=== PATIENT | female | born 1955 | race Caucasian/White ===

== ENCOUNTER 2021-12-28 18:55 | Inpatient (IN) ==
[2021-12-29] MEDS ORDERED: Naloxone 0.4 MG/ML INJ IVP PRN (05:02)
[2021-12-29] MEDS ORDERED: Ondansetron 4 MG/2 ML VIAL IVP PRN (05:02)
[2021-12-29 05:45] LABS: Basophils # 0.1 K/mcL (0.0-0.2); Basophils % 0.3 %; Eosinophils # 0.1 K/mcL (0.0-0.6); Eosinophils % 0.7 %; Hematocrit 40.8 % (35.3-44.9); Hemoglobin 12.8 g/dL (11.5-15.4); Immature Granulocytes % 0.6 % (0-4); Lymphocytes # 1.7 K/mcL (0.6-4.6); Lymphocytes % 8.6 %; Mean Corpuscular HGB Conc 31.4 g/dL (31.6-35.5); Mean Corpuscular Hemoglobin 26.8 pg (28.0-33.3); Mean Corpuscular Volume 85.5 fL (83.0-100.0); Mean Platelet Volume 10.5 fL (9.4-12.4); Monocytes # 1.2 K/mcL (0.0-1.3); Monocytes % 6.1 %; Neutrophils # 16.4 K/mcL (1.6-8.9); Platelet Count 176 K/mcL (140-400); Red Blood Count 4.77 M/mcL (3.82-4.97); Segmented Neutrophils % 83.7 %; White Blood Count 19.6 K/mcL (4.3-11.1)
[2021-12-29] MEDS ORDERED: Dextrose Gel 15 GM/37.5 ML TUBE PO PRN ×2 (05:56)
[2021-12-29] MEDS ORDERED: *HR* Dextrose 50 % in Water (Syg) 50 ML SYRINGE IVP PRN (05:56)
[2021-12-29] MEDS ORDERED: D5% in Water 1,000 ML IVC PRN (05:56)
[2021-12-29 06:03] LABS: Magnesium 1.8 mg/dL (1.6-2.6); Phosphorous 2.9 mg/dL (2.7-4.5)
[2021-12-29] MEDS: *HR* Heparin 5,000 UNIT/ML VIAL SQ SCH ×3 (06:03→20:14)
[2021-12-29 06:04] LABS: BUN/Creatinine Ratio 16 (6-26); Blood Urea Nitrogen 13 mg/dL (8-23); Calcium 8.1 mg/dL (8.6-10.3); Carbon Dioxide 25 mEq/L (23-29); Chloride 104 mEq/L (98-107); Glucose 102 mg/dL (70-105); Osmolality,Calculated 280 (280-300); Potassium 3.6 mEq/L (3.5-5.1); Sodium 135 mEq/L (136-145); eGFR For African Americans > 60 (> 60); eGFR For Non-African Americans > 60 (> 60)
[2021-12-29] MEDS ORDERED: Vancomycin (wt based) 1,000 MG VIAL IVPB SCH (07:00)
[2021-12-29] MEDS: Ipratropium/Albuterol Neb 3 ML IH SCH ×5 (07:37→23:04)
[2021-12-29] MEDS: Insulin LISPRO 300 UNITS/3 ML VIAL SUBQ SCH ×3 (07:56→17:48)
[2021-12-29] MEDS: Piperacillin/Tazobactam 3.375 GM in 0.9 % Sodium Chloride Mini Bag 100 ML IVPB SCH ×3 (07:58→22:59)
[2021-12-29] MEDS: Acetaminophen 325 MG TABLET PO PRN ×2 (08:18→14:31)
[2021-12-29] MEDS ORDERED: Buprenorphine Hcl/Naloxone Hcl 8-2MG SL SCH (09:00)
[2021-12-29] MEDS ORDERED: Torsemide 20 MG TABLET PO PRN (09:40)
[2021-12-29] MEDS ORDERED: *HR* Buprenorphine HCl 8 MG TAB.SUBL SL SCH (15:15)
[2021-12-29] MEDS: Gabapentin 100 MG CAPSULE PO SCH ×2 (15:46→20:14)
[2021-12-29] MEDS: Vancomycin 1,500 MG/265 ML IV.SOLN IVPB SCH (20:13)
[2021-12-29] MEDS: PARoxetine 20 MG TABLET PO SCH (20:14)
[2021-12-30] MEDS: Ipratropium/Albuterol Neb 3 ML IH SCH ×6 (03:39→23:05)
[2021-12-30 04:04] LABS: Basophils % 0.2 %; Eosinophils # 0.5 K/mcL (0.0-0.6); Eosinophils % 2.8 %; Hematocrit 39.7 % (35.3-44.9); Hemoglobin 12.5 g/dL (11.5-15.4); Immature Granulocytes % 0.6 % (0-4); Lymphocytes # 2.1 K/mcL (0.6-4.6); Lymphocytes % 12.6 %; Mean Corpuscular HGB Conc 31.5 g/dL (31.6-35.5); Mean Corpuscular Hemoglobin 26.9 pg (28.0-33.3); Mean Corpuscular Volume 85.4 fL (83.0-100.0); Mean Platelet Volume 10.7 fL (9.4-12.4); Monocytes # 1.3 K/mcL (0.0-1.3); Monocytes % 7.8 %; Neutrophils # 12.4 K/mcL (1.6-8.9); Platelet Count 182 K/mcL (140-400); Red Blood Count 4.65 M/mcL (3.82-4.97); Red Cell Distribution Width 18.2 % (11.5-14.5); White Blood Count 16.3 K/mcL (4.3-11.1)
[2021-12-30 04:25] LABS: BUN/Creatinine Ratio 18 (6-26); Blood Urea Nitrogen 12 mg/dL (8-23); C-Reactive Protein > 300 mg/L (Less than 10); Calcium 8.5 mg/dL (8.6-10.3); Carbon Dioxide 27 mEq/L (23-29); Chloride 103 mEq/L (98-107); Estimated Average Glucose 126 mg/dl; Glucose 89 mg/dL (70-105); Osmolality,Calculated 281 (280-300); Potassium 3.7 mEq/L (3.5-5.1); Sodium 136 mEq/L (136-145); eGFR For African Americans > 60 (> 60); eGFR For Non-African Americans > 60 (> 60)
[2021-12-30] MEDS: *HR* Heparin 5,000 UNIT/ML VIAL SQ SCH ×3 (04:37→23:22)
[2021-12-30] MEDS: Insulin LISPRO 300 UNITS/3 ML VIAL SUBQ SCH ×3 (08:21→16:50)
[2021-12-30] MEDS: Piperacillin/Tazobactam 3.375 GM in 0.9 % Sodium Chloride Mini Bag 100 ML IVPB SCH ×2 (08:32→15:28)
[2021-12-30] MEDS: Gabapentin 100 MG CAPSULE PO SCH ×3 (08:32→20:35)
[2021-12-30] MEDS: *HR* Buprenorphine HCl 8 MG TAB.SUBL SL SCH ×2 (09:16→20:34)
[2021-12-30] MEDS ORDERED: Furosemide 20 MG/2 ML VIAL IVP ONE (11:22)
[2021-12-30] MEDS: Acetaminophen 325 MG TABLET PO PRN (12:31)
[2021-12-30] MEDS: Cyanocobalamin (B-12) 1,000 MCG/ML VIAL SQ SCH (12:32)
[2021-12-30] MEDS: PARoxetine 20 MG TABLET PO SCH (20:34)
[2021-12-30] MEDS: Melatonin 3 MG TABLET PO PRN (20:35)
[2021-12-30] MEDS: Vancomycin 1,500 MG/265 ML IV.SOLN IVPB SCH (20:46)
[2021-12-30] MEDS ORDERED: Vancomycin 2,000 MG/520 ML IV.SOLN IVPB SCH (21:00)
[2021-12-31] MEDS: Acetaminophen 325 MG TABLET PO PRN ×2 (00:27→15:08)
[2021-12-31] MEDS: Piperacillin/Tazobactam 3.375 GM in 0.9 % Sodium Chloride Mini Bag 100 ML IVPB SCH ×4 (00:28→23:34)
[2021-12-31] MEDS: Ipratropium/Albuterol Neb 3 ML IH SCH ×6 (03:57→23:25)
[2021-12-31] MEDS: *HR* Heparin 5,000 UNIT/ML VIAL SQ SCH ×3 (05:06→20:31)
[2021-12-31 05:49] LABS: Basophils % 0.3 %; Eosinophils # 0.5 K/mcL (0.0-0.6); Eosinophils % 4.2 %; Hematocrit 38.6 % (35.3-44.9); Hemoglobin 12.1 g/dL (11.5-15.4); Immature Granulocytes % 0.5 % (0-4); Lymphocytes # 1.7 K/mcL (0.6-4.6); Lymphocytes % 13.8 %; Mean Corpuscular HGB Conc 31.3 g/dL (31.6-35.5); Mean Corpuscular Hemoglobin 26.7 pg (28.0-33.3); Mean Corpuscular Volume 85.2 fL (83.0-100.0); Mean Platelet Volume 10.9 fL (9.4-12.4); Monocytes # 1.3 K/mcL (0.0-1.3); Monocytes % 10.5 %; Neutrophils # 8.9 K/mcL (1.6-8.9); Platelet Count 207 K/mcL (140-400); Red Blood Count 4.53 M/mcL (3.82-4.97); Red Cell Distribution Width 18.1 % (11.5-14.5); Segmented Neutrophils % 70.7 %; White Blood Count 12.6 K/mcL (4.3-11.1)
[2021-12-31 06:09] LABS: BUN/Creatinine Ratio 19 (6-26); Blood Urea Nitrogen 13 mg/dL (8-23); Calcium 8.3 mg/dL (8.6-10.3); Carbon Dioxide 29 mEq/L (23-29); Chloride 102 mEq/L (98-107); Glucose 92 mg/dL (70-105); Osmolality,Calculated 282 (280-300); Potassium 3.4 mEq/L (3.5-5.1); Sodium 136 mEq/L (136-145); eGFR For African Americans > 60 (> 60); eGFR For Non-African Americans > 60 (> 60)
[2021-12-31 06:10] LABS: Phosphorous 3.2 mg/dL (2.7-4.5)
[2021-12-31] MEDS: Insulin LISPRO 300 UNITS/3 ML VIAL SUBQ SCH ×3 (07:32→17:17)
[2021-12-31] MEDS: Cyanocobalamin (B-12) 1,000 MCG/ML VIAL SQ SCH (08:21)
[2021-12-31] MEDS: *HR* Buprenorphine HCl 8 MG TAB.SUBL SL SCH ×2 (08:22→20:33)
[2021-12-31] MEDS: Gabapentin 100 MG CAPSULE PO SCH ×3 (08:22→20:32)
[2021-12-31] MEDS ORDERED: *HR* Buprenorphine HCl 8 MG TAB.SUBL SL SCH (09:00)
[2021-12-31] MEDS ORDERED: Furosemide 40 MG/4 ML VIAL IVP ONE (09:05)
[2021-12-31] MEDS ORDERED: Furosemide 40 MG/4 ML VIAL ONE (09:06)
[2021-12-31 09:20] LABS: ABG Base Excess 3 mEq/L (-2 to 3); ABG HCO3 29 mEq/L (21-27); ABG Oxygen Saturation 93 % (95-98); ABG PCO2 48 mmHg (35-45); ABG PH 7.39 pH Units (7.32-7.45); ABG PO2 67 mmHg (85-104); ABG TCO2 30 mEq/L (20-26)
[2021-12-31 13:17] LABS: Adenovirus Not Detected (Not Detect); Bordetella Pertussis Not Detected (Not Detect); Chlamydophila pneumoniae Not Detected (Not Detect); Coronavirus 229E Not Detected (Not Detect); Coronavirus HKU1 Not Detected (Not Detect); Coronavirus NL63 Not Detected (Not Detect); Coronavirus OC43 Not Detected (Not Detect); Human Metapneumovirus Not Detected (Not Detect); Human Rhinovirus/Enterovirus Not Detected (Not Detect); Influenza A Subtype 2009 H1 Not Detected (Not Detect); Influenza B Not Detected (Not Detect); Mycoplasma pneumoniae Not Detected (Not Detect); Parainfluenza Virus 1 Not Detected (Not Detect); Parainfluenza Virus 2 Not Detected (Not Detect); Parainfluenza Virus 3 Not Detected (Not Detect); Parainfluenza Virus 4 Not Detected (Not Detect); Respiratory Syncytial Virus Not Detected (Not Detect); SARS-CoV-2 Not Detected (Not Detect)
[2021-12-31] MEDS: PARoxetine 20 MG TABLET PO SCH (20:32)
[2021-12-31] MEDS: Vancomycin 2,000 MG/520 ML IV.SOLN IVPB SCH (20:32)
[2022-01-01] MEDS: Ipratropium/Albuterol Neb 3 ML IH SCH ×6 (03:50→22:46)
[2022-01-01 04:26] LABS: Basophils % 0.3 %; Eosinophils # 0.7 K/mcL (0.0-0.6); Eosinophils % 5.6 %; Hematocrit 39.9 % (35.3-44.9); Hemoglobin 12.5 g/dL (11.5-15.4); Immature Granulocytes % 0.7 % (0-4); Lymphocytes # 1.3 K/mcL (0.6-4.6); Lymphocytes % 10.8 %; Mean Corpuscular HGB Conc 31.3 g/dL (31.6-35.5); Mean Corpuscular Hemoglobin 26.9 pg (28.0-33.3); Mean Corpuscular Volume 85.8 fL (83.0-100.0); Monocytes # 1.9 K/mcL (0.0-1.3); Monocytes % 16.5 %; Neutrophils # 7.7 K/mcL (1.6-8.9); Platelet Count 216 K/mcL (140-400); Red Blood Count 4.65 M/mcL (3.82-4.97); Red Cell Distribution Width 18.2 % (11.5-14.5); Segmented Neutrophils % 66.1 %; White Blood Count 11.6 K/mcL (4.3-11.1)
[2022-01-01 04:39] LABS: BUN/Creatinine Ratio 18 (6-26); Blood Urea Nitrogen 15 mg/dL (8-23); Calcium 8.5 mg/dL (8.6-10.3); Carbon Dioxide 32 mEq/L (23-29); Chloride 101 mEq/L (98-107); Glucose 99 mg/dL (70-105); Osmolality,Calculated 289 (280-300); Phosphorous 3.5 mg/dL (2.7-4.5); Potassium 3.3 mEq/L (3.5-5.1); Sodium 139 mEq/L (136-145); eGFR For African Americans > 60 (> 60); eGFR For Non-African Americans > 60 (> 60)
[2022-01-01] MEDS: Acetaminophen 325 MG TABLET PO PRN (04:57)
[2022-01-01] MEDS: *HR* Heparin 5,000 UNIT/ML VIAL SQ SCH ×3 (04:57→20:17)
[2022-01-01] MEDS: Insulin LISPRO 300 UNITS/3 ML VIAL SUBQ SCH ×3 (07:19→16:04)
[2022-01-01] MEDS ORDERED: *HR* Succinylcholine 200 MG/10 ML VIAL IVP ONE (07:50)
[2022-01-01] MEDS ORDERED: *HR* FentaNYL (PF) 100 MCG/2 ML VIAL ONE (07:50)
[2022-01-01] MEDS ORDERED: Lidocaine -MPF 2% 5 ML VIAL ONE (07:50)
[2022-01-01] MEDS ORDERED: Ondansetron 4 MG/2 ML VIAL ONE (07:50)
[2022-01-01] MEDS: Piperacillin/Tazobactam 3.375 GM in 0.9 % Sodium Chloride Mini Bag 100 ML IVPB SCH ×2 (10:20→16:04)
[2022-01-01] MEDS: *HR* Buprenorphine HCl 8 MG TAB.SUBL SL SCH ×2 (10:31→20:17)
[2022-01-01] MEDS: Gabapentin 100 MG CAPSULE PO SCH ×3 (10:31→20:17)
[2022-01-01] MEDS: PARoxetine 20 MG TABLET PO SCH (20:17)
[2022-01-01] MEDS: Vancomycin 2,000 MG/520 ML IV.SOLN IVPB SCH (20:18)
[2022-01-02] MEDS: Piperacillin/Tazobactam 3.375 GM in 0.9 % Sodium Chloride Mini Bag 100 ML IVPB SCH ×4 (00:34→23:58)
[2022-01-02] MEDS: Ipratropium/Albuterol Neb 3 ML IH SCH ×6 (03:03→23:54)
[2022-01-02] MEDS: *HR* Heparin 5,000 UNIT/ML VIAL SQ SCH ×3 (05:37→22:26)
[2022-01-02] MEDS: Gabapentin 100 MG CAPSULE PO SCH ×3 (08:28→20:14)
[2022-01-02] MEDS: *HR* Buprenorphine HCl 8 MG TAB.SUBL SL SCH ×2 (08:28→20:14)
[2022-01-02] MEDS: Ergocalciferol (VIT D2) 50,000 UNIT (1.25MG) CAP PO SCH (08:28)
[2022-01-02] MEDS: Insulin LISPRO 300 UNITS/3 ML VIAL SUBQ SCH ×3 (08:28→16:20)
[2022-01-02 08:33] LABS: Basophils % 0.1 %; Hematocrit 37.9 % (35.3-44.9); Hemoglobin 11.9 g/dL (11.5-15.4); Immature Granulocytes % 0.6 % (0-4); Lymphocytes # 0.6 K/mcL (0.6-4.6); Lymphocytes % 6.4 %; Mean Corpuscular HGB Conc 31.4 g/dL (31.6-35.5); Mean Corpuscular Hemoglobin 26.9 pg (28.0-33.3); Mean Corpuscular Volume 85.7 fL (83.0-100.0); Mean Platelet Volume 10.4 fL (9.4-12.4); Monocytes # 1.1 K/mcL (0.0-1.3); Monocytes % 11.3 %; Neutrophils # 7.7 K/mcL (1.6-8.9); Platelet Count 274 K/mcL (140-400); Red Blood Count 4.42 M/mcL (3.82-4.97); Segmented Neutrophils % 81.6 %; White Blood Count 9.5 K/mcL (4.3-11.1)
[2022-01-02 08:53] LABS: Calcium 8.8 mg/dL (8.6-10.3); Magnesium 2.4 mg/dL (1.6-2.6); Phosphorous 3.2 mg/dL (2.7-4.5); Potassium 3.5 mEq/L (3.5-5.1)
[2022-01-02 10:27] LABS: Source of Body Fluid RLL BAL
[2022-01-02 13:19] LABS: Appearance of Body Fluid Slightly Hazy (Clear); Volume of Body Fluid 13 mL
[2022-01-02] MEDS: PARoxetine 20 MG TABLET PO SCH (20:13)
[2022-01-02] MEDS ORDERED: Vancomycin 1,750 MG/517.5 ML IV.SOLN IVPB SCH (21:00)
[2022-01-03] MEDS: Ipratropium/Albuterol Neb 3 ML IH SCH ×6 (04:13→23:55)
[2022-01-03] MEDS: *HR* Heparin 5,000 UNIT/ML VIAL SQ SCH ×3 (05:18→22:41)
[2022-01-03] MEDS: Cyanocobalamin (B-12) 1,000 MCG/ML VIAL SQ SCH (07:25)
[2022-01-03] MEDS: Gabapentin 100 MG CAPSULE PO SCH ×3 (08:27→19:36)
[2022-01-03] MEDS: *HR* Buprenorphine HCl 8 MG TAB.SUBL SL SCH ×2 (08:27→19:36)
[2022-01-03] MEDS: Piperacillin/Tazobactam 3.375 GM in 0.9 % Sodium Chloride Mini Bag 100 ML IVPB SCH ×2 (08:27→15:08)
[2022-01-03] MEDS: Insulin LISPRO 300 UNITS/3 ML VIAL SUBQ SCH ×3 (08:31→17:00)
[2022-01-03] MEDS: Albumin 25% 25gram/100mL 25 GM/100 ML IV.SOLN IVPB SCH (15:08)
[2022-01-03] MEDS: PARoxetine 20 MG TABLET PO SCH (19:35)
[2022-01-03] MEDS: Acetaminophen 325 MG TABLET PO PRN (22:50)
[2022-01-04] MEDS: Piperacillin/Tazobactam 3.375 GM in 0.9 % Sodium Chloride Mini Bag 100 ML IVPB SCH ×2 (00:01→08:48)
[2022-01-04] MEDS: Albumin 25% 25gram/100mL 25 GM/100 ML IV.SOLN IVPB SCH ×2 (00:01→08:48)
[2022-01-04 03:06] LABS: Basophils % 0.5 %; Eosinophils # 0.5 K/mcL (0.0-0.6); Eosinophils % 6.1 %; Hematocrit 34.9 % (35.3-44.9); Hemoglobin 10.7 g/dL (11.5-15.4); Immature Granulocytes % 0.7 % (0-4); Lymphocytes # 1.7 K/mcL (0.6-4.6); Lymphocytes % 19.2 %; Mean Corpuscular HGB Conc 30.7 g/dL (31.6-35.5); Mean Corpuscular Hemoglobin 26.7 pg (28.0-33.3); Mean Platelet Volume 10.6 fL (9.4-12.4); Monocytes # 0.9 K/mcL (0.0-1.3); Monocytes % 9.9 %; Neutrophils # 5.6 K/mcL (1.6-8.9); Platelet Count 293 K/mcL (140-400); Red Blood Count 4.01 M/mcL (3.82-4.97); Red Cell Distribution Width 18.3 % (11.5-14.5); Segmented Neutrophils % 63.6 %; White Blood Count 8.9 K/mcL (4.3-11.1)
[2022-01-04 03:26] LABS: Calcium 8.9 mg/dL (8.6-10.3); Magnesium 2.3 mg/dL (1.6-2.6); Phosphorous 3.6 mg/dL (2.7-4.5)
[2022-01-04] MEDS: Ipratropium/Albuterol Neb 3 ML IH SCH ×6 (03:58→23:29)
[2022-01-04] MEDS: *HR* Heparin 5,000 UNIT/ML VIAL SQ SCH ×3 (05:48→21:14)
[2022-01-04] MEDS: Gabapentin 100 MG CAPSULE PO SCH ×3 (08:46→21:13)
[2022-01-04] MEDS: *HR* Buprenorphine HCl 8 MG TAB.SUBL SL SCH ×2 (08:46→21:14)
[2022-01-04] MEDS: Insulin LISPRO 300 UNITS/3 ML VIAL SUBQ SCH ×3 (09:23→15:54)
[2022-01-04] MEDS: Acetaminophen 325 MG TABLET PO PRN (17:13)
[2022-01-04] MEDS: Cefepime HCl 2,000 MG in 0.9 % Sodium Chloride Mini Bag 100 ML IVPB SCH (17:13)
[2022-01-04 19:20] LABS: Influenza A PCR Body Fluid INVALID; Influenza B PCR Body Fluid INVALID; RVP Body Fluid Source BAL
[2022-01-04] MEDS: PARoxetine 20 MG TABLET PO SCH (21:13)
[2022-01-05] MEDS: Ipratropium/Albuterol Neb 3 ML IH SCH ×6 (03:45→22:59)
[2022-01-05] MEDS: *HR* Heparin 5,000 UNIT/ML VIAL SQ SCH ×3 (06:17→21:27)
[2022-01-05] MEDS: Cefepime HCl 2,000 MG in 0.9 % Sodium Chloride Mini Bag 100 ML IVPB SCH ×2 (06:17→18:42)
[2022-01-05 06:58] LABS: White Blood Count 9.6 K/mcL (4.3-11.1)
[2022-01-05 06:59] LABS: Basophils % 0.4 %; Eosinophils # 0.9 K/mcL (0.0-0.6); Eosinophils % 9.6 %; Hematocrit 35.4 % (35.3-44.9); Immature Granulocytes % 0.5 % (0-4); Lymphocytes # 1.8 K/mcL (0.6-4.6); Lymphocytes % 18.8 %; Mean Corpuscular HGB Conc 31.1 g/dL (31.6-35.5); Mean Corpuscular Hemoglobin 26.8 pg (28.0-33.3); Mean Corpuscular Volume 86.1 fL (83.0-100.0); Mean Platelet Volume 10.7 fL (9.4-12.4); Monocytes # 0.7 K/mcL (0.0-1.3); Monocytes % 7.5 %; Neutrophils # 6.1 K/mcL (1.6-8.9); Platelet Count 330 K/mcL (140-400); Red Blood Count 4.11 M/mcL (3.82-4.97); Segmented Neutrophils % 63.2 %
[2022-01-05 07:21] LABS: Calcium 8.9 mg/dL (8.6-10.3); Magnesium 2.4 mg/dL (1.6-2.6); Phosphorous 4.1 mg/dL (2.7-4.5)
[2022-01-05 07:25] LABS: RSV PCR Body Fluid INVALID
[2022-01-05] MEDS: Gabapentin 100 MG CAPSULE PO SCH ×3 (10:46→21:27)
[2022-01-05] MEDS: hydrOXYzine pamoate 25 MG CAPSULE PO PRN (10:46)
[2022-01-05] MEDS: *HR* Buprenorphine HCl 8 MG TAB.SUBL SL SCH ×2 (10:47→21:24)
[2022-01-05] MEDS: Insulin LISPRO 300 UNITS/3 ML VIAL SUBQ SCH ×2 (14:36→18:36)
[2022-01-05] MEDS: Acetaminophen 325 MG TABLET PO PRN (18:50)
[2022-01-05] MEDS: PARoxetine 20 MG TABLET PO SCH (21:26)
[2022-01-05] MEDS ORDERED: Vancomycin 500 MG in 0.9 % Sodium Chloride Mini Bag 100 ML IVPB ONE (23:00)
[2022-01-06 02:16] LABS: Basophils # 0.1 K/mcL (0.0-0.2); Basophils % 0.5 %; Eosinophils # 0.9 K/mcL (0.0-0.6); Eosinophils % 9.7 %; Hematocrit 35.1 % (35.3-44.9); Hemoglobin 10.9 g/dL (11.5-15.4); Immature Granulocytes % 0.7 % (0-4); Lymphocytes # 1.6 K/mcL (0.6-4.6); Lymphocytes % 16.6 %; Mean Corpuscular HGB Conc 31.1 g/dL (31.6-35.5); Mean Corpuscular Hemoglobin 26.8 pg (28.0-33.3); Mean Corpuscular Volume 86.5 fL (83.0-100.0); Mean Platelet Volume 10.5 fL (9.4-12.4); Monocytes # 0.7 K/mcL (0.0-1.3); Monocytes % 7.3 %; Neutrophils # 6.3 K/mcL (1.6-8.9); Platelet Count 308 K/mcL (140-400); Red Blood Count 4.06 M/mcL (3.82-4.97); Segmented Neutrophils % 65.2 %; White Blood Count 9.7 K/mcL (4.3-11.1)
[2022-01-06 02:38] LABS: Magnesium 2.3 mg/dL (1.6-2.6); Phosphorous 3.8 mg/dL (2.7-4.5); Potassium 3.9 mEq/L (3.5-5.1)
[2022-01-06] MEDS: Ipratropium/Albuterol Neb 3 ML IH SCH ×5 (03:53→20:25)
[2022-01-06] MEDS: Cefepime HCl 2,000 MG in 0.9 % Sodium Chloride Mini Bag 100 ML IVPB SCH ×2 (06:22→18:07)
[2022-01-06] MEDS: *HR* Heparin 5,000 UNIT/ML VIAL SQ SCH ×3 (06:23→20:33)
[2022-01-06] MEDS: Gabapentin 100 MG CAPSULE PO SCH ×3 (08:04→20:33)
[2022-01-06] MEDS: *HR* Buprenorphine HCl 8 MG TAB.SUBL SL SCH ×2 (08:04→20:32)
[2022-01-06] MEDS: Insulin LISPRO 300 UNITS/3 ML VIAL SUBQ SCH ×3 (08:05→16:52)
[2022-01-06] MEDS: Acetaminophen 325 MG TABLET PO PRN (08:12)
[2022-01-06] MEDS: metroNIDAZOLE 500 MG TABLET PO SCH ×2 (14:57→20:32)
[2022-01-06] MEDS: PARoxetine 20 MG TABLET PO SCH (20:32)
[2022-01-07 01:23] LABS: VBG HCO3 30 mEq/L (21-27); VBG PCO2 48 mmHg (41-51); VBG PO2 142 mmHg (25-50)
[2022-01-07 01:36] LABS: Magnesium 2.1 mg/dL (1.6-2.6); Potassium 4.2 mEq/L (3.5-5.1)
[2022-01-07 02:30] LABS: Basophils % 0.3 %; Eosinophils # 0.8 K/mcL (0.0-0.6); Eosinophils % 9.4 %; Hematocrit 35.9 % (35.3-44.9); Hemoglobin 11.2 g/dL (11.5-15.4); Immature Granulocytes % 0.7 % (0-4); Lymphocytes # 1.4 K/mcL (0.6-4.6); Lymphocytes % 15.6 %; Mean Corpuscular HGB Conc 31.2 g/dL (31.6-35.5); Mean Corpuscular Hemoglobin 26.7 pg (28.0-33.3); Mean Corpuscular Volume 85.7 fL (83.0-100.0); Mean Platelet Volume 10.7 fL (9.4-12.4); Monocytes # 0.6 K/mcL (0.0-1.3); Monocytes % 7.1 %; Neutrophils # 5.9 K/mcL (1.6-8.9); Platelet Count 316 K/mcL (140-400); Red Blood Count 4.19 M/mcL (3.82-4.97); Red Cell Distribution Width 17.8 % (11.5-14.5); Segmented Neutrophils % 66.9 %; White Blood Count 8.8 K/mcL (4.3-11.1)
[2022-01-07] MEDS: Ipratropium/Albuterol Neb 3 ML IH SCH ×6 (03:55→23:02)
[2022-01-07] MEDS: Acetaminophen 325 MG TABLET PO PRN ×3 (05:31→20:58)
[2022-01-07] MEDS: *HR* Heparin 5,000 UNIT/ML VIAL SQ SCH ×3 (05:32→22:02)
[2022-01-07] MEDS: Cefepime HCl 2,000 MG in 0.9 % Sodium Chloride Mini Bag 100 ML IVPB SCH ×2 (05:32→18:11)
[2022-01-07] MEDS ORDERED: Acetaminophen IV 500 MG/50 ML BAG IVPB PRN (05:47)
[2022-01-07] MEDS: Insulin LISPRO 300 UNITS/3 ML VIAL SUBQ SCH ×3 (08:08→16:53)
[2022-01-07] MEDS: Gabapentin 100 MG CAPSULE PO SCH ×3 (08:15→20:46)
[2022-01-07] MEDS: metroNIDAZOLE 500 MG TABLET PO SCH ×3 (08:15→20:47)
[2022-01-07] MEDS: *HR* Buprenorphine HCl 8 MG TAB.SUBL SL SCH ×2 (08:15→20:45)
[2022-01-07] MEDS ORDERED: polyethylene glycoL 3350 17 GM POWD.PACK PO PRN (17:10)
[2022-01-07] MEDS: PARoxetine 20 MG TABLET PO SCH (20:47)
[2022-01-08 01:20] LABS: Basophils # 0.1 K/mcL (0.0-0.2); Basophils % 0.6 %; Eosinophils # 0.8 K/mcL (0.0-0.6); Eosinophils % 9.1 %; Hemoglobin 11.8 g/dL (11.5-15.4); Immature Granulocytes % 0.4 % (0-4); Lymphocytes # 1.5 K/mcL (0.6-4.6); Lymphocytes % 16.6 %; Mean Corpuscular HGB Conc 31.1 g/dL (31.6-35.5); Mean Corpuscular Hemoglobin 26.6 pg (28.0-33.3); Mean Corpuscular Volume 85.6 fL (83.0-100.0); Mean Platelet Volume 10.1 fL (9.4-12.4); Monocytes # 0.7 K/mcL (0.0-1.3); Monocytes % 7.6 %; Neutrophils # 5.8 K/mcL (1.6-8.9); Platelet Count 283 K/mcL (140-400); Red Blood Count 4.44 M/mcL (3.82-4.97); Red Cell Distribution Width 17.5 % (11.5-14.5); Segmented Neutrophils % 65.7 %; White Blood Count 8.9 K/mcL (4.3-11.1)
[2022-01-08 01:37] LABS: Phosphorous 3.5 mg/dL (2.7-4.5); Potassium 4.8 mEq/L (3.5-5.1)
[2022-01-08] MEDS: Ipratropium/Albuterol Neb 3 ML IH SCH ×6 (04:09→23:23)
[2022-01-08] MEDS: Cefepime HCl 2,000 MG in 0.9 % Sodium Chloride Mini Bag 100 ML IVPB SCH ×2 (05:59→18:38)
[2022-01-08] MEDS: *HR* Heparin 5,000 UNIT/ML VIAL SQ SCH ×3 (05:59→21:25)
[2022-01-08] MEDS: Insulin LISPRO 300 UNITS/3 ML VIAL SUBQ SCH ×3 (09:05→17:08)
[2022-01-08] MEDS: metroNIDAZOLE 500 MG TABLET PO SCH ×3 (09:11→21:17)
[2022-01-08] MEDS: Gabapentin 100 MG CAPSULE PO SCH ×3 (09:12→21:17)
[2022-01-08] MEDS: *HR* Buprenorphine HCl 8 MG TAB.SUBL SL SCH ×2 (09:12→21:17)
[2022-01-08 14:28] LABS: HSV Source BRONCH WASH
[2022-01-08] MEDS: PARoxetine 20 MG TABLET PO SCH (21:18)
[2022-01-09] MEDS: Ipratropium/Albuterol Neb 3 ML IH SCH ×6 (04:05→22:52)
[2022-01-09 06:27] LABS: Basophils # 0.1 K/mcL (0.0-0.2); Basophils % 0.8 %; Eosinophils # 0.9 K/mcL (0.0-0.6); Eosinophils % 9.8 %; Hematocrit 36.3 % (35.3-44.9); Hemoglobin 11.4 g/dL (11.5-15.4); Immature Granulocytes % 0.5 % (0-4); Lymphocytes # 2.3 K/mcL (0.6-4.6); Lymphocytes % 23.5 %; Mean Corpuscular HGB Conc 31.4 g/dL (31.6-35.5); Mean Corpuscular Hemoglobin 26.8 pg (28.0-33.3); Mean Corpuscular Volume 85.4 fL (83.0-100.0); Mean Platelet Volume 10.8 fL (9.4-12.4); Monocytes # 1.1 K/mcL (0.0-1.3); Monocytes % 11.8 %; Neutrophils # 5.1 K/mcL (1.6-8.9); Platelet Count 261 K/mcL (140-400); Red Blood Count 4.25 M/mcL (3.82-4.97); Red Cell Distribution Width 17.7 % (11.5-14.5); Segmented Neutrophils % 53.6 %; White Blood Count 9.6 K/mcL (4.3-11.1)
[2022-01-09] MEDS: *HR* Heparin 5,000 UNIT/ML VIAL SQ SCH ×3 (06:45→20:00)
[2022-01-09] MEDS: Cefepime HCl 2,000 MG in 0.9 % Sodium Chloride Mini Bag 100 ML IVPB SCH (06:46)
[2022-01-09] MEDS: Insulin LISPRO 300 UNITS/3 ML VIAL SUBQ SCH ×3 (08:23→17:22)
[2022-01-09] MEDS: Ergocalciferol (VIT D2) 50,000 UNIT (1.25MG) CAP PO SCH (08:23)
[2022-01-09] MEDS: Gabapentin 100 MG CAPSULE PO SCH ×3 (08:24→19:59)
[2022-01-09] MEDS: *HR* Buprenorphine HCl 8 MG TAB.SUBL SL SCH ×2 (08:24→20:00)
[2022-01-09] MEDS: metroNIDAZOLE 500 MG TABLET PO SCH (08:25)
[2022-01-09 08:30] LABS: Phosphorous 3.9 mg/dL (2.7-4.5); Potassium 4.5 mEq/L (3.5-5.1)
[2022-01-09] MEDS: predniSONE 20 MG TABLET PO SCH (12:42)
[2022-01-09] MEDS: PARoxetine 20 MG TABLET PO SCH (19:59)
[2022-01-10] MEDS: Ipratropium/Albuterol Neb 3 ML IH SCH ×6 (03:55→23:21)
[2022-01-10] MEDS: *HR* Heparin 5,000 UNIT/ML VIAL SQ SCH ×3 (05:19→21:01)
[2022-01-10 07:32] LABS: Calcium 9.2 mg/dL (8.6-10.3); Phosphorous 3.7 mg/dL (2.7-4.5); Potassium 4.4 mEq/L (3.5-5.1)
[2022-01-10] MEDS: Insulin LISPRO 300 UNITS/3 ML VIAL SUBQ SCH ×3 (08:03→16:38)
[2022-01-10] MEDS: *HR* Buprenorphine HCl 8 MG TAB.SUBL SL SCH ×2 (08:10→21:01)
[2022-01-10] MEDS: predniSONE 20 MG TABLET PO SCH (08:10)
[2022-01-10] MEDS: Gabapentin 100 MG CAPSULE PO SCH ×3 (08:10→21:01)
[2022-01-10] MEDS ORDERED: Furosemide 20 MG/2 ML VIAL IVP ONE (10:55)
[2022-01-10] MEDS: Acetaminophen 325 MG TABLET PO PRN (12:09)
[2022-01-10] MEDS: PARoxetine 20 MG TABLET PO SCH (21:02)
[2022-01-11] MEDS: Ipratropium/Albuterol Neb 3 ML IH SCH ×6 (03:53→23:10)
[2022-01-11] MEDS: *HR* Heparin 5,000 UNIT/ML VIAL SQ SCH ×3 (06:02→22:45)
[2022-01-11] MEDS: Insulin LISPRO 300 UNITS/3 ML VIAL SUBQ SCH ×3 (08:13→16:43)
[2022-01-11] MEDS: *HR* Buprenorphine HCl 8 MG TAB.SUBL SL SCH ×2 (08:14→19:37)
[2022-01-11] MEDS: predniSONE 20 MG TABLET PO SCH (08:16)
[2022-01-11] MEDS: Gabapentin 100 MG CAPSULE PO SCH ×3 (08:16→19:36)
[2022-01-11] MEDS: Melatonin 3 MG TABLET PO PRN (19:36)
[2022-01-11] MEDS: PARoxetine 20 MG TABLET PO SCH (19:37)
[2022-01-12] MEDS: Ipratropium/Albuterol Neb 3 ML IH SCH ×6 (04:06→23:46)
[2022-01-12] MEDS: *HR* Heparin 5,000 UNIT/ML VIAL SQ SCH ×3 (06:01→20:37)
[2022-01-12 06:20] LABS: ABG Base Excess 4 mEq/L (-2 to 3); ABG HCO3 29 mEq/L (21-27); ABG Oxygen Saturation 92 % (95-98); ABG PCO2 46 mmHg (35-45); ABG PH 7.41 pH Units (7.32-7.45); ABG PO2 65 mmHg (85-104); ABG TCO2 31 mEq/L (20-26)
[2022-01-12] MEDS: *HR* Buprenorphine HCl 8 MG TAB.SUBL SL SCH ×2 (07:38→20:38)
[2022-01-12] MEDS: Gabapentin 100 MG CAPSULE PO SCH ×3 (07:38→20:37)
[2022-01-12] MEDS: predniSONE 20 MG TABLET PO SCH (07:39)
[2022-01-12] MEDS: Torsemide 20 MG TABLET PO SCH (07:39)
[2022-01-12] MEDS: Insulin LISPRO 300 UNITS/3 ML VIAL SUBQ SCH ×3 (08:20→17:56)
[2022-01-12 08:24] LABS: BUN/Creatinine Ratio 30 (6-26); Blood Urea Nitrogen 32 mg/dL (8-23); Calcium 9.3 mg/dL (8.6-10.3); Carbon Dioxide 31 mEq/L (23-29); Chloride 102 mEq/L (98-107); Glucose 92 mg/dL (70-105); Osmolality,Calculated 293 (280-300); Potassium 4.3 mEq/L (3.5-5.1); Sodium 138 mEq/L (136-145); eGFR For African Americans > 60 (> 60); eGFR For Non-African Americans 50 (> 60)
[2022-01-12] MEDS: Acetaminophen 325 MG TABLET PO PRN (09:21)
[2022-01-12] MEDS: PARoxetine 20 MG TABLET PO SCH (20:37)
[2022-01-12] MEDS: hydrOXYzine pamoate 25 MG CAPSULE PO PRN (23:34)
[2022-01-13] MEDS: Ipratropium/Albuterol Neb 3 ML IH SCH ×6 (03:17→23:36)
[2022-01-13] MEDS: *HR* Heparin 5,000 UNIT/ML VIAL SQ SCH ×3 (05:16→21:36)
[2022-01-13] MEDS: Insulin LISPRO 300 UNITS/3 ML VIAL SUBQ SCH ×3 (08:08→18:00)
[2022-01-13] MEDS: predniSONE 20 MG TABLET PO SCH (09:46)
[2022-01-13] MEDS: Gabapentin 100 MG CAPSULE PO SCH ×3 (09:47→19:43)
[2022-01-13] MEDS: Torsemide 20 MG TABLET PO SCH (09:47)
[2022-01-13] MEDS: *HR* Buprenorphine HCl 8 MG TAB.SUBL SL SCH ×2 (09:47→19:42)
[2022-01-13] MEDS: Acetaminophen 325 MG TABLET PO PRN (09:55)
[2022-01-13] MEDS ORDERED: Acetaminophen 325 MG TABLET PO ONE (13:55)
[2022-01-13] MEDS: PARoxetine 20 MG TABLET PO SCH (19:42)
[2022-01-14] MEDS: Ipratropium/Albuterol Neb 3 ML IH SCH ×6 (03:20→23:04)
[2022-01-14] MEDS: *HR* Heparin 5,000 UNIT/ML VIAL SQ SCH ×3 (05:55→20:07)
[2022-01-14] MEDS: Insulin LISPRO 300 UNITS/3 ML VIAL SUBQ SCH ×3 (09:29→17:59)
[2022-01-14] MEDS: *HR* Buprenorphine HCl 8 MG TAB.SUBL SL SCH ×2 (09:30→20:08)
[2022-01-14] MEDS: Gabapentin 100 MG CAPSULE PO SCH ×3 (09:30→20:08)
[2022-01-14] MEDS: Torsemide 20 MG TABLET PO SCH (09:30)
[2022-01-14] MEDS: PARoxetine 20 MG TABLET PO SCH (20:08)
[2022-01-15] MEDS: Ipratropium/Albuterol Neb 3 ML IH SCH ×6 (04:22→23:11)
[2022-01-15] MEDS: *HR* Heparin 5,000 UNIT/ML VIAL SQ SCH ×3 (05:48→20:41)
[2022-01-15] MEDS: Acetaminophen 325 MG TABLET PO PRN ×2 (09:07→18:57)
[2022-01-15] MEDS: Insulin LISPRO 300 UNITS/3 ML VIAL SUBQ SCH ×3 (09:07→17:10)
[2022-01-15] MEDS: Gabapentin 100 MG CAPSULE PO SCH ×3 (09:08→20:41)
[2022-01-15] MEDS: Torsemide 20 MG TABLET PO SCH (09:08)
[2022-01-15] MEDS: *HR* Buprenorphine HCl 8 MG TAB.SUBL SL SCH ×2 (09:08→20:41)
[2022-01-15] MEDS: PARoxetine 20 MG TABLET PO SCH (20:41)
[2022-01-16] MEDS: Ipratropium/Albuterol Neb 3 ML IH SCH ×6 (04:18→23:46)
[2022-01-16 05:56] LABS: Basophils # 0.1 K/mcL (0.0-0.2); Basophils % 1.1 %; Eosinophils # 0.7 K/mcL (0.0-0.6); Eosinophils % 10.6 %; Hematocrit 41.4 % (35.3-44.9); Hemoglobin 12.8 g/dL (11.5-15.4); Immature Granulocytes % 0.8 % (0-4); Lymphocytes # 2.1 K/mcL (0.6-4.6); Lymphocytes % 31.2 %; Mean Corpuscular HGB Conc 30.9 g/dL (31.6-35.5); Mean Corpuscular Hemoglobin 26.4 pg (28.0-33.3); Mean Corpuscular Volume 85.4 fL (83.0-100.0); Mean Platelet Volume 10.7 fL (9.4-12.4); Monocytes % 14.4 %; Neutrophils # 2.8 K/mcL (1.6-8.9); Platelet Count 255 K/mcL (140-400); Red Blood Count 4.85 M/mcL (3.82-4.97); Red Cell Distribution Width 17.9 % (11.5-14.5); Segmented Neutrophils % 41.9 %; White Blood Count 6.6 K/mcL (4.3-11.1)
[2022-01-16 06:23] LABS: Calcium 9.2 mg/dL (8.6-10.3); Potassium 4.5 mEq/L (3.5-5.1)
[2022-01-16] MEDS: *HR* Heparin 5,000 UNIT/ML VIAL SQ SCH ×3 (06:45→21:09)
[2022-01-16] MEDS: Insulin LISPRO 300 UNITS/3 ML VIAL SUBQ SCH ×3 (09:21→17:49)
[2022-01-16] MEDS: Torsemide 20 MG TABLET PO SCH (10:24)
[2022-01-16] MEDS: Gabapentin 100 MG CAPSULE PO SCH ×3 (10:24→20:18)
[2022-01-16] MEDS: Acetaminophen 325 MG TABLET PO PRN ×2 (10:24→20:22)
[2022-01-16] MEDS: *HR* Buprenorphine HCl 8 MG TAB.SUBL SL SCH ×2 (10:25→20:18)
[2022-01-16] MEDS: Ergocalciferol (VIT D2) 50,000 UNIT (1.25MG) CAP PO SCH (13:03)
[2022-01-16] MEDS: PARoxetine 20 MG TABLET PO SCH (20:19)
[2022-01-17] MEDS: Acetaminophen 325 MG TABLET PO PRN ×2 (03:38→17:18)
[2022-01-17] MEDS: Ipratropium/Albuterol Neb 3 ML IH SCH ×6 (04:14→23:25)
[2022-01-17] MEDS: *HR* Heparin 5,000 UNIT/ML VIAL SQ SCH ×3 (05:13→20:38)
[2022-01-17 05:20] LABS: Calcium 8.9 mg/dL (8.6-10.3); Potassium 4.4 mEq/L (3.5-5.1)
[2022-01-17] MEDS: *HR* Buprenorphine HCl 8 MG TAB.SUBL SL SCH ×2 (07:53→20:38)
[2022-01-17] MEDS: Gabapentin 100 MG CAPSULE PO SCH ×3 (07:53→20:37)
[2022-01-17] MEDS ORDERED: Torsemide 20 MG TABLET PO SCH ×2 (09:00)
[2022-01-17] MEDS: Insulin LISPRO 300 UNITS/3 ML VIAL SUBQ SCH ×3 (10:58→17:19)
[2022-01-17] MEDS: PARoxetine 20 MG TABLET PO SCH (20:37)
[2022-01-18] MEDS: Acetaminophen 325 MG TABLET PO PRN ×3 (01:13→21:22)
[2022-01-18] MEDS: Ipratropium/Albuterol Neb 3 ML IH SCH ×5 (04:13→19:57)
[2022-01-18] MEDS: *HR* Heparin 5,000 UNIT/ML VIAL SQ SCH ×3 (05:08→21:08)
[2022-01-18 05:55] LABS: Calcium 8.8 mg/dL (8.6-10.3)
[2022-01-18] MEDS: Insulin LISPRO 300 UNITS/3 ML VIAL SUBQ SCH ×3 (07:40→16:45)
[2022-01-18] MEDS: *HR* Buprenorphine HCl 8 MG TAB.SUBL SL SCH ×2 (07:52→21:08)
[2022-01-18] MEDS: Gabapentin 100 MG CAPSULE PO SCH ×3 (07:52→21:09)
[2022-01-18] MEDS: PARoxetine 20 MG TABLET PO SCH (21:08)
[2022-01-18] MEDS: Melatonin 3 MG TABLET PO PRN (21:10)
[2022-01-19] MEDS: Ipratropium/Albuterol Neb 3 ML IH SCH ×7 (00:15→23:49)
[2022-01-19] MEDS: Acetaminophen 325 MG TABLET PO PRN ×3 (03:30→20:53)
[2022-01-19] MEDS: *HR* Heparin 5,000 UNIT/ML VIAL SQ SCH ×3 (04:59→20:53)
[2022-01-19] MEDS: *HR* Buprenorphine HCl 8 MG TAB.SUBL SL SCH ×2 (08:13→20:54)
[2022-01-19] MEDS: Gabapentin 100 MG CAPSULE PO SCH ×3 (08:13→20:53)
[2022-01-19] MEDS: Insulin LISPRO 300 UNITS/3 ML VIAL SUBQ SCH ×3 (08:26→16:15)
[2022-01-19] MEDS: PARoxetine 20 MG TABLET PO SCH (20:53)
[2022-01-20] MEDS: hydrOXYzine pamoate 25 MG CAPSULE PO PRN (01:37)
[2022-01-20 02:04] LABS: Calcium 9.2 mg/dL (8.6-10.3); Potassium 4.3 mEq/L (3.5-5.1)
[2022-01-20] MEDS: Ipratropium/Albuterol Neb 3 ML IH SCH ×6 (04:14→23:09)
[2022-01-20] MEDS: *HR* Heparin 5,000 UNIT/ML VIAL SQ SCH ×3 (06:30→22:58)
[2022-01-20] MEDS: Gabapentin 100 MG CAPSULE PO SCH ×3 (08:37→20:10)
[2022-01-20] MEDS: Insulin LISPRO 300 UNITS/3 ML VIAL SUBQ SCH ×3 (08:37→17:29)
[2022-01-20] MEDS: *HR* Buprenorphine HCl 8 MG TAB.SUBL SL SCH ×2 (08:37→20:10)
[2022-01-20] MEDS: Torsemide 20 MG TABLET PO SCH (08:38)
[2022-01-20] MEDS: Acetaminophen 325 MG TABLET PO PRN ×2 (08:48→17:26)
[2022-01-20] MEDS ORDERED: Furosemide 40 MG in 0.9 % Sodium Chloride 50 ML IV STA (17:43)
[2022-01-20] MEDS ORDERED: Furosemide 40 MG/4 ML VIAL ONE (17:48)
[2022-01-20] MEDS ORDERED: Furosemide 40 MG/4 ML VIAL IVP ONE (18:00)
[2022-01-20 18:26] LABS: Bilirubin,Urine Negative (Negative); Blood,Urine Negative (Negative); Clarity,Urine Clear (Clear); Color,Urine Light-Yellow (Yellow); Glucose,Urine (UA) Normal (Normal); Ketones,Urine Negative (Negative); Leukocyte Esterase,Urine Negative (Negative); Mucus,Urine Few per lpf (None-Few); Nitrite,Urine Positive (Negative); Protein,Urine 30 mg/dL (Neg-Trace); RBC,Urine 0-3 per hpf (0-3); Specific Gravity,Urine 1.014 (1.010-1.025); Squamous Epithelial Cell,Urine Few per hpf (None-Few); Urobilinogen,Urine Normal (Normal); WBC,Urine 0-3 per hpf (0-3)
[2022-01-20] MEDS ORDERED: cefTRIAXone 1,000 MG in Water for inj. (sterile) 10 ML IVP SCH (19:00)
[2022-01-20] MEDS: PARoxetine 20 MG TABLET PO SCH (20:11)
[2022-01-20 20:57] LABS: Adenovirus Not Detected (Not Detect); Bordetella Pertussis Not Detected (Not Detect); Chlamydophila pneumoniae Not Detected (Not Detect); Coronavirus 229E Not Detected (Not Detect); Coronavirus HKU1 Not Detected (Not Detect); Coronavirus NL63 Not Detected (Not Detect); Coronavirus OC43 Not Detected (Not Detect); Human Metapneumovirus Not Detected (Not Detect); Human Rhinovirus/Enterovirus Not Detected (Not Detect); Influenza A Subtype 2009 H1 Not Detected (Not Detect); Influenza B Not Detected (Not Detect); Mycoplasma pneumoniae Not Detected (Not Detect); Parainfluenza Virus 1 Not Detected (Not Detect); Parainfluenza Virus 2 Not Detected (Not Detect); Parainfluenza Virus 3 Not Detected (Not Detect); Parainfluenza Virus 4 Not Detected (Not Detect); Respiratory Syncytial Virus Not Detected (Not Detect); SARS-CoV-2 Not Detected (Not Detect)
[2022-01-21] MEDS ORDERED: Furosemide 20 MG/2 ML VIAL IVP ONE (02:59)
[2022-01-21 03:21] LABS: ABG Base Excess 2 mEq/L (-2 to 3); ABG HCO3 28 mEq/L (21-27); ABG Oxygen Saturation 93 % (95-98); ABG PCO2 49 mmHg (35-45); ABG PH 7.37 pH Units (7.32-7.45); ABG PO2 70 mmHg (85-104); ABG TCO2 30 mEq/L (20-26)
[2022-01-21] MEDS: Ipratropium/Albuterol Neb 3 ML IH SCH ×5 (04:26→19:59)
[2022-01-21] MEDS: *HR* Heparin 5,000 UNIT/ML VIAL SQ SCH ×3 (05:15→22:27)
[2022-01-21] MEDS ORDERED: Vancomycin 1,500 MG/265 ML IV.SOLN IVPB SCH (08:00)
[2022-01-21] MEDS: Insulin LISPRO 300 UNITS/3 ML VIAL SUBQ SCH ×3 (08:45→17:06)
[2022-01-21 08:49] LABS: Mean Platelet Volume 11.5 fL (9.4-12.4)
[2022-01-21 08:50] LABS: Hematocrit 41.1 % (35.3-44.9); Mean Corpuscular HGB Conc 31.6 g/dL (31.6-35.5); Mean Corpuscular Hemoglobin 26.5 pg (28.0-33.3); Mean Corpuscular Volume 83.9 fL (83.0-100.0); Platelet Count 179 K/mcL (140-400); Red Cell Distribution Width 17.6 % (11.5-14.5); White Blood Count 28.8 K/mcL (4.3-11.1)
[2022-01-21 09:07] LABS: Albumin 3.1 g/dL (3.5-5.7); Albumin/Globulin Ratio 0.7 (1.1-2.2); Bilirubin,Total 0.7 mg/dL (0.3-1.0); Calcium 9.3 mg/dL (8.6-10.3); Globulin 4.4 g/dL (2.4-3.5); Potassium 4.2 mEq/L (3.5-5.1); Total Protein 7.5 g/dL (6.4-8.9)
[2022-01-21] MEDS ORDERED: 0.9 % Sodium Chloride 1,000 ML IVC SCH (09:45)
[2022-01-21 09:52] LABS: Monocytes # 2.3 K/mcL (0.0-1.3); Neutrophils # 24.5 K/mcL (1.6-8.9); Platelet Estimate Normal (Normal)
[2022-01-21] MEDS: Gabapentin 100 MG CAPSULE PO SCH ×3 (10:12→22:35)
[2022-01-21] MEDS: Piperacillin/Tazobactam 3.375 GM in 0.9 % Sodium Chloride Mini Bag 100 ML IVPB SCH ×2 (10:12→22:06)
[2022-01-21] MEDS: *HR* Buprenorphine HCl 8 MG TAB.SUBL SL SCH ×2 (10:13→22:36)
[2022-01-21] MEDS ORDERED: Norepinephrine 4 MG/254 ML in 0.9% Sodium Chloride IVC ONE (10:36)
[2022-01-21] MEDS ORDERED: *HR* Etomidate 20 MG/10 ML AMPUL IVP ONE (11:02)
[2022-01-21] MEDS ORDERED: *HR* Midazolam HCl 2 MG/2 ML VIAL IVP ONE (11:02)
[2022-01-21] MEDS ORDERED: *HR* Midazolam HCl 5 MG/5 ML VIAL IVP ONE (11:02)
[2022-01-21] MEDS ORDERED: methylPREDNISolone 125 MG/2 ML VIAL IVP ONE (11:41)
[2022-01-21] MEDS ORDERED: Acetaminophen 650 MG RECTAL SUPP RC PRN (15:02)
[2022-01-21] MEDS ORDERED: 0.9 % Sodium Chloride 500 ML ONE (17:44)
[2022-01-21] MEDS ORDERED: 0.9 % Sodium Chloride 250 ML IV ONE (17:54)
[2022-01-21] MEDS ORDERED: Dexmedetomidine HCl 400 MCG/100 ML MLS IVC SCH (18:00)
[2022-01-21] MEDS ORDERED: Artificial Tears SOLN 15 ML BOTTLE BOTH EYES PRN (18:13)
[2022-01-21 18:25] LABS: A.calcoaceticus-baumannii cplx Not Detected (Not Detect); Bacteroides fragilis by PCR Not Detected (Not Detect); Candida albicans by PCR Not Detected (Not Detect); Candida auris by PCR Not Detected (Not Detect); Candida glabrata by PCR Not Detected (Not Detect); Candida krusei by PCR Not Detected (Not Detect); Candida parapsilosis by PCR Not Detected (Not Detect); Candida tropicalis by PCR Not Detected (Not Detect); Crypto. neoformans/gattii PCR Not Detected (Not Detect); Enterobacter cloacae Cmplx PCR Not Detected (Not Detect); Enterobacterales by PCR Not Detected (Not Detect); Enterococcus faecalis by PCR Not Detected (Not Detect); Enterococcus faecium by PCR Not Detected (Not Detect); Escherichia coli by PCR Not Detected (Not Detect); Klebs. pneumoniae group by PCR Not Detected (Not Detect); Klebsiella aerogenes by PCR Not Detected (Not Detect); Klebsiella oxytoca by PCR Not Detected (Not Detect); Proteus by PCR Not Detected (Not Detect); Pseudomonas aeruginosa by PCR Not Detected (Not Detect); Salmonella species by PCR Not Detected (Not Detect); Serratia marcescens by PCR Not Detected (Not Detect); Staph epidermidis by PCR DETECTED (Not Detect); Staph lugdunensis by PCR Not Detected (Not Detect); Staphylococcus aureus by PCR Not Detected (Not Detect); Stenotrophomonas maltophilia Not Detected (Not Detect); Streptococcus agalactiae(B)PCR Not Detected (Not Detect); Streptococcus by PCR Not Detected (Not Detect); Streptococcus pneumoniae PCR Not Detected (Not Detect); Streptococcus pyogenes (A) PCR Not Detected (Not Detect); mecA/C Methicillin-Resist Gene DETECTED (Not Detect)
[2022-01-21 18:58] LABS: Basophils # 0.1 K/mcL (0.0-0.2); Basophils % 0.2 %; Eosinophils # 0.1 K/mcL (0.0-0.6); Eosinophils % 0.2 %; Hematocrit 39.7 % (35.3-44.9); Hemoglobin 12.5 g/dL (11.5-15.4); Immature Granulocytes % 1.5 % (0-4); Lymphocytes # 0.7 K/mcL (0.6-4.6); Lymphocytes % 2.6 %; Mean Corpuscular HGB Conc 31.5 g/dL (31.6-35.5); Mean Corpuscular Hemoglobin 26.8 pg (28.0-33.3); Mean Platelet Volume 11.6 fL (9.4-12.4); Monocytes # 0.7 K/mcL (0.0-1.3); Monocytes % 2.4 %; Platelet Count 174 K/mcL (140-400); Red Blood Count 4.67 M/mcL (3.82-4.97); Red Cell Distribution Width 17.4 % (11.5-14.5); Segmented Neutrophils % 93.1 %; White Blood Count 28.1 K/mcL (4.3-11.1)
[2022-01-21 19:00] LABS: Neutrophils # 26.2 K/mcL (1.6-8.9)
[2022-01-21] MEDS: FentaNYL (PF) 1,000 MCG/100 ML IV.SOLN IVC SCH ×3 (19:05→22:33)
[2022-01-21 19:18] LABS: VBG Ionized Calcium 1.01 mmol/L (1.15-1.35)
[2022-01-21 19:46] LABS: Platelet Estimate Normal (Normal)
[2022-01-21] MEDS: Dexmedetomidine HCl 400 MCG/100 ML MLS IVC SCH (19:50)
[2022-01-21 19:54] LABS: Albumin/Globulin Ratio 0.7 (1.1-2.2); Bilirubin,Total 0.7 mg/dL (0.3-1.0); Calcium 9.1 mg/dL (8.6-10.3); Globulin 4.4 g/dL (2.4-3.5); Magnesium 1.9 mg/dL (1.6-2.6); Phosphorous 5.9 mg/dL (2.7-4.5); Potassium 3.9 mEq/L (3.5-5.1); Total Protein 7.4 g/dL (6.4-8.9)
[2022-01-21 20:45] LABS: ABG Base Excess 1 mEq/L (-2 to 3); ABG HCO3 27 mEq/L (21-27); ABG Oxygen Saturation 95 % (95-98); ABG PCO2 49 mmHg (35-45); ABG PH 7.35 pH Units (7.32-7.45); ABG PO2 80 mmHg (85-104); ABG TCO2 29 mEq/L (20-26); Blood Gas Modality PC; Blood Gas VT 400 cc
[2022-01-21] MEDS: Pantoprazole 40 MG VIAL IVP SCH (22:07)
[2022-01-21] MEDS: Artificial Tears SOLN 15 ML BOTTLE BOTH EYES SCH (22:12)
[2022-01-21] MEDS: Chlorhexidine Rinse 15 ML MOUTHWASH MM SCH ×2 (22:27→22:34)
[2022-01-21] MEDS: MethylPREDNISolone 40 MG/ML VIAL IVP SCH (22:27)
[2022-01-21] MEDS: PARoxetine 20 MG TABLET PO SCH (22:35)
[2022-01-22] MEDS: Ipratropium/Albuterol Neb 3 ML IH SCH ×7 (00:08→23:26)
[2022-01-22] MEDS: Artificial Tears SOLN 15 ML BOTTLE BOTH EYES SCH ×7 (01:04→23:28)
[2022-01-22] MEDS: Piperacillin/Tazobactam 3.375 GM in 0.9 % Sodium Chloride Mini Bag 100 ML IVPB SCH ×4 (01:05→23:37)
[2022-01-22] MEDS: MethylPREDNISolone 40 MG/ML VIAL IVP SCH (03:43)
[2022-01-22 03:58] LABS: VBG Ionized Calcium 1.12 mmol/L (1.15-1.35)
[2022-01-22 04:27] LABS: Bacteria,Urine Few per hpf (None-Few); Bilirubin,Urine Negative (Negative); Blood,Urine Moderate (Negative); Budding Yeast,Urine Few per hpf (None Seen); Clarity,Urine Turbid (Clear); Color,Urine Yellow (Yellow); Glucose,Urine (UA) Normal (Normal); Ketones,Urine Negative (Negative); Leukocyte Esterase,Urine Negative (Negative); Mucus,Urine Few per lpf (None-Few); Nitrite,Urine Negative (Negative); PH,Urine 5.5 pH Units (5.0-8.0); Protein,Urine 70 mg/dL (Neg-Trace); Specific Gravity,Urine 1.021 (1.010-1.025); Squamous Epithelial Cell,Urine Few per hpf (None-Few); Urobilinogen,Urine Normal (Normal)
[2022-01-22 04:33] LABS: Hemoglobin 11.3 g/dL (11.5-15.4); Mean Corpuscular HGB Conc 31.4 g/dL (31.6-35.5); Mean Corpuscular Hemoglobin 26.4 pg (28.0-33.3); Mean Corpuscular Volume 84.1 fL (83.0-100.0); Mean Platelet Volume 11.9 fL (9.4-12.4); Platelet Count 161 K/mcL (140-400); Red Blood Count 4.28 M/mcL (3.82-4.97); Red Cell Distribution Width 17.5 % (11.5-14.5); White Blood Count 24.5 K/mcL (4.3-11.1)
[2022-01-22 04:48] LABS: Magnesium 2.2 mg/dL (1.6-2.6); Phosphorous 4.9 mg/dL (2.7-4.5)
[2022-01-22 04:49] LABS: Albumin 2.8 g/dL (3.5-5.7); Albumin/Globulin Ratio 0.7 (1.1-2.2); Bilirubin,Total 0.5 mg/dL (0.3-1.0); Calcium 9.1 mg/dL (8.6-10.3); Globulin 4.2 g/dL (2.4-3.5); Potassium 3.5 mEq/L (3.5-5.1)
[2022-01-22 05:07] LABS: ABG Base Excess 3 mEq/L (-2 to 3); ABG HCO3 30 mEq/L (21-27); ABG Oxygen Saturation 95 % (95-98); ABG PCO2 56 mmHg (35-45); ABG PH 7.34 pH Units (7.32-7.45); ABG PO2 80 mmHg (85-104); ABG TCO2 32 mEq/L (20-26); Blood Gas Modality AF; Blood Gas VT 400 cc
[2022-01-22 05:41] LABS: Lymphocytes # 1.5 K/mcL (0.6-4.6)
[2022-01-22 05:42] LABS: Anisocytosis 1+ (Not Present); Platelet Estimate Normal (Normal)
[2022-01-22] MEDS: *HR* Heparin 5,000 UNIT/ML VIAL SQ SCH ×3 (06:22→21:02)
[2022-01-22] MEDS: FentaNYL (PF) 1,000 MCG/100 ML IV.SOLN IVC SCH ×2 (07:00→16:43)
[2022-01-22] MEDS: Pantoprazole 40 MG VIAL IVP SCH (08:02)
[2022-01-22] MEDS: *HR* Buprenorphine HCl 8 MG TAB.SUBL SL SCH ×2 (08:04→19:30)
[2022-01-22] MEDS: Chlorhexidine Rinse 15 ML MOUTHWASH MM SCH ×2 (08:05→19:29)
[2022-01-22] MEDS: Gabapentin 100 MG CAPSULE PO SCH ×3 (08:19→19:30)
[2022-01-22] MEDS: Insulin LISPRO 300 UNITS/3 ML VIAL SUBQ SCH ×3 (08:34→17:01)
[2022-01-22] MEDS ORDERED: Docusate Oral Soln 100 MG/10 ML UDC PO SCH (09:00)
[2022-01-22] MEDS: Dexmedetomidine HCl 400 MCG/100 ML MLS IVC SCH (15:10)
[2022-01-22] MEDS: PARoxetine 20 MG TABLET PO SCH (19:30)
[2022-01-22] MEDS: Docusate Oral Soln 100 MG/10 ML UDC GTUBE SCH (19:32)
[2022-01-23] MEDS: Artificial Tears SOLN 15 ML BOTTLE BOTH EYES SCH ×6 (03:36→23:30)
[2022-01-23] MEDS: Ipratropium/Albuterol Neb 3 ML IH SCH ×6 (03:42→23:51)
[2022-01-23 04:29] LABS: Hemoglobin 11.2 g/dL (11.5-15.4); Immature Granulocytes % 0.4 % (0-4); Lymphocytes # 1.3 K/mcL (0.6-4.6); Lymphocytes % 7.8 %; Mean Corpuscular HGB Conc 32.9 g/dL (31.6-35.5); Mean Corpuscular Hemoglobin 27.4 pg (28.0-33.3); Mean Corpuscular Volume 83.1 fL (83.0-100.0); Mean Platelet Volume 11.2 fL (9.4-12.4); Monocytes # 1.1 K/mcL (0.0-1.3); Monocytes % 6.8 %; Neutrophils # 13.7 K/mcL (1.6-8.9); Platelet Count 208 K/mcL (140-400); Red Blood Count 4.09 M/mcL (3.82-4.97); White Blood Count 16.1 K/mcL (4.3-11.1)
[2022-01-23 04:30] LABS: VBG Ionized Calcium 0.99 mmol/L (1.15-1.35)
[2022-01-23 04:44] LABS: ABG Base Excess 2 mEq/L (-2 to 3); ABG HCO3 26 mEq/L (21-27); ABG Oxygen Saturation 99 % (95-98); ABG PCO2 35 mmHg (35-45); ABG PH 7.47 pH Units (7.32-7.45); ABG PO2 105 mmHg (85-104); ABG TCO2 27 mEq/L (20-26); Blood Gas Modality ASSIST CONTROL; Blood Gas VT 400 cc
[2022-01-23] MEDS ORDERED: 0.9 % Sodium Chloride 250 ML ONE (05:20)
[2022-01-23] MEDS: *HR* Heparin 5,000 UNIT/ML VIAL SQ SCH ×3 (05:32→22:21)
[2022-01-23 05:42] LABS: Albumin 2.9 g/dL (3.5-5.7); Albumin/Globulin Ratio 0.7 (1.1-2.2); Bilirubin,Total 0.5 mg/dL (0.3-1.0); Calcium 9.1 mg/dL (8.6-10.3); Globulin 3.9 g/dL (2.4-3.5); Magnesium 2.5 mg/dL (1.6-2.6); Phosphorous 2.9 mg/dL (2.7-4.5); Potassium 3.4 mEq/L (3.5-5.1); Total Protein 6.8 g/dL (6.4-8.9)
[2022-01-23] MEDS: Gabapentin 100 MG CAPSULE PO SCH ×3 (08:13→20:03)
[2022-01-23] MEDS: *HR* Buprenorphine HCl 8 MG TAB.SUBL SL SCH ×2 (08:13→20:05)
[2022-01-23] MEDS: Pantoprazole 40 MG VIAL IVP SCH (08:13)
[2022-01-23] MEDS: Torsemide 20 MG TABLET PO SCH (08:14)
[2022-01-23] MEDS: Piperacillin/Tazobactam 3.375 GM in 0.9 % Sodium Chloride Mini Bag 100 ML IVPB SCH (08:15)
[2022-01-23] MEDS: Chlorhexidine Rinse 15 ML MOUTHWASH MM SCH ×2 (08:16→19:58)
[2022-01-23] MEDS: Docusate Oral Soln 100 MG/10 ML UDC GTUBE SCH ×2 (08:20→20:04)
[2022-01-23] MEDS: Dexmedetomidine HCl 400 MCG/100 ML MLS IVC SCH (12:28)
[2022-01-23] MEDS: Insulin LISPRO 300 UNITS/3 ML VIAL SUBQ SCH ×3 (12:28→17:31)
[2022-01-23] MEDS: Ergocalciferol (VIT D2) 50,000 UNIT (1.25MG) CAP PO SCH (12:28)
[2022-01-23] MEDS ORDERED: Potassium Chloride Elixir 20 MEQ/15 ML UDC PO ONE (15:59)
[2022-01-23] MEDS: CeFAZolin 2,000 MG/120 ML BAG IVPB SCH ×2 (17:01→23:29)
[2022-01-23] MEDS ORDERED: ceFAZolin 2,000 MG in 0.9 % Sodium Chloride 100 ML IVPB SCH (18:00)
[2022-01-23] MEDS ORDERED: Acetaminophen 325 MG TABLET PO PRN (19:25)
[2022-01-23] MEDS: PARoxetine 20 MG TABLET PO SCH (20:04)
[2022-01-24 03:52] LABS: Basophils % 0.2 %; Eosinophils # 0.1 K/mcL (0.0-0.6); Eosinophils % 0.7 %; Hematocrit 34.4 % (35.3-44.9); Hemoglobin 10.7 g/dL (11.5-15.4); Immature Granulocytes % 0.5 % (0-4); Lymphocytes # 1.2 K/mcL (0.6-4.6); Lymphocytes % 13.1 %; Mean Corpuscular HGB Conc 31.1 g/dL (31.6-35.5); Mean Corpuscular Hemoglobin 26.8 pg (28.0-33.3); Mean Corpuscular Volume 86.2 fL (83.0-100.0); Mean Platelet Volume 11.2 fL (9.4-12.4); Monocytes # 1.1 K/mcL (0.0-1.3); Monocytes % 11.9 %; Neutrophils # 6.5 K/mcL (1.6-8.9); Platelet Count 216 K/mcL (140-400); Red Blood Count 3.99 M/mcL (3.82-4.97); Red Cell Distribution Width 18.3 % (11.5-14.5); Segmented Neutrophils % 73.6 %; White Blood Count 8.8 K/mcL (4.3-11.1)
[2022-01-24 04:02] LABS: Albumin 2.9 g/dL (3.5-5.7); Albumin/Globulin Ratio 0.7 (1.1-2.2); Bilirubin,Total 0.5 mg/dL (0.3-1.0); Calcium 9.4 mg/dL (8.6-10.3); Globulin 4.1 g/dL (2.4-3.5); Magnesium 2.4 mg/dL (1.6-2.6); Phosphorous 4.8 mg/dL (2.7-4.5)
[2022-01-24] MEDS: Ipratropium/Albuterol Neb 3 ML IH SCH ×5 (04:15→20:19)
[2022-01-24 04:17] LABS: VBG Ionized Calcium 1.22 mmol/L (1.15-1.35)
[2022-01-24] MEDS: Artificial Tears SOLN 15 ML BOTTLE BOTH EYES SCH ×3 (05:39→11:07)
[2022-01-24] MEDS: *HR* Heparin 5,000 UNIT/ML VIAL SQ SCH ×3 (05:43→22:42)
[2022-01-24] MEDS: Dexmedetomidine HCl 400 MCG/100 ML MLS IVC SCH (05:44)
[2022-01-24] MEDS: Pantoprazole 40 MG VIAL IVP SCH (07:23)
[2022-01-24] MEDS: FentaNYL (PF) 1,000 MCG/100 ML IV.SOLN IVC SCH (07:23)
[2022-01-24] MEDS: Chlorhexidine Rinse 15 ML MOUTHWASH MM SCH ×2 (07:23→22:40)
[2022-01-24] MEDS: Docusate Oral Soln 100 MG/10 ML UDC GTUBE SCH (07:23)
[2022-01-24] MEDS: Insulin LISPRO 300 UNITS/3 ML VIAL SUBQ SCH (07:24)
[2022-01-24] MEDS: CeFAZolin 2,000 MG/120 ML BAG IVPB SCH ×2 (07:25→16:01)
[2022-01-24] MEDS: Torsemide 20 MG TABLET PO SCH (09:02)
[2022-01-24] MEDS: *HR* Buprenorphine HCl 8 MG TAB.SUBL SL SCH ×2 (10:11→22:40)
[2022-01-24] MEDS: Gabapentin 100 MG CAPSULE PO SCH ×3 (10:12→22:29)
[2022-01-24] MEDS ORDERED: E-Z-PAQUE (BARIUM SULF) SUSP 1 BOTTLE PO ONE ×2 (13:18→13:43)
[2022-01-24] MEDS ORDERED: E-Z-HD (BARIUM SULF) SUSPENSION PO ONE ×2 (13:18→13:43)
[2022-01-24] MEDS ORDERED: *HR* Dextrose 50 % in Water (Syg) 50 ML SYRINGE IVP PRN (13:43)
[2022-01-24] MEDS ORDERED: D5% in Water 1,000 ML IVC PRN (13:43)
[2022-01-24] MEDS ORDERED: hydrOXYzine pamoate 25 MG CAPSULE PO PRN (13:43)
[2022-01-24] MEDS ORDERED: Naloxone 0.4 MG/ML INJ IVP PRN (13:43)
[2022-01-24] MEDS ORDERED: Melatonin 3 MG TABLET PO PRN (13:43)
[2022-01-24] MEDS ORDERED: Ondansetron 4 MG/2 ML VIAL IVP PRN (13:43)
[2022-01-24] MEDS ORDERED: polyethylene glycoL 3350 17 GM POWD.PACK PO PRN (13:43)
[2022-01-24] MEDS: Acetaminophen 325 MG TABLET PO PRN (16:00)
[2022-01-24] MEDS ORDERED: Sennosides/Docusate Sodium TABLET PO SCH (21:00)
[2022-01-24] MEDS: Sennosides/Docusate Sodium TABLET PO SCH (22:28)
[2022-01-24] MEDS: PARoxetine 20 MG TABLET PO SCH (22:29)
[2022-01-25] MEDS: CeFAZolin 2,000 MG/120 ML BAG IVPB SCH ×3 (00:18→15:09)
[2022-01-25] MEDS: Ipratropium/Albuterol Neb 3 ML IH SCH ×6 (00:21→20:29)
[2022-01-25 01:16] LABS: ABG Base Excess 4 mEq/L (-2 to 3); ABG HCO3 29 mEq/L (21-27); ABG Oxygen Saturation 97 % (95-98); ABG PCO2 46 mmHg (35-45); ABG PH 7.41 pH Units (7.32-7.45); ABG PO2 88 mmHg (85-104); ABG TCO2 30 mEq/L (20-26)
[2022-01-25 02:10] LABS: Basophils % 0.5 %; Eosinophils # 0.2 K/mcL (0.0-0.6); Eosinophils % 2.1 %; Hematocrit 35.5 % (35.3-44.9); Hemoglobin 10.9 g/dL (11.5-15.4); Immature Granulocytes % 1.1 % (0-4); Lymphocytes # 2.1 K/mcL (0.6-4.6); Lymphocytes % 24.8 %; Mean Corpuscular HGB Conc 30.7 g/dL (31.6-35.5); Mean Corpuscular Hemoglobin 26.5 pg (28.0-33.3); Mean Corpuscular Volume 86.2 fL (83.0-100.0); Mean Platelet Volume 11.4 fL (9.4-12.4); Monocytes # 1.1 K/mcL (0.0-1.3); Monocytes % 12.4 %; Platelet Count 219 K/mcL (140-400); Red Blood Count 4.12 M/mcL (3.82-4.97); Red Cell Distribution Width 18.1 % (11.5-14.5); Segmented Neutrophils % 59.1 %; White Blood Count 8.5 K/mcL (4.3-11.1)
[2022-01-25 02:41] LABS: Alanine Aminotransferase 5 Units/L (7-52); Albumin 2.9 g/dL (3.5-5.7); Albumin/Globulin Ratio 0.7 (1.1-2.2); Alkaline Phosphatase 107 Units/L (34-104); Aspartate Amino Transferase 18 Units/L (13-39); BUN/Creatinine Ratio 30 (6-26); Bilirubin,Total 0.6 mg/dL (0.3-1.0); Blood Urea Nitrogen 29 mg/dL (8-23); Calcium 9.1 mg/dL (8.6-10.3); Carbon Dioxide 28 mEq/L (23-29); Chloride 108 mEq/L (98-107); Glucose 84 mg/dL (70-105); Magnesium 2.1 mg/dL (1.6-2.6); Osmolality,Calculated 303 (280-300); Phosphorous 3.5 mg/dL (2.7-4.5); Potassium 3.8 mEq/L (3.5-5.1); Sodium 144 mEq/L (136-145); Total Protein 6.9 g/dL (6.4-8.9); eGFR For African Americans > 60 (> 60); eGFR For Non-African Americans 58 (> 60)
[2022-01-25] MEDS: *HR* Heparin 5,000 UNIT/ML VIAL SQ SCH ×3 (06:26→22:21)
[2022-01-25] MEDS: Sennosides/Docusate Sodium TABLET PO SCH ×2 (10:32→22:19)
[2022-01-25] MEDS: Pantoprazole 40 MG VIAL IVP SCH (10:32)
[2022-01-25] MEDS: Torsemide 20 MG TABLET PO SCH (10:32)
[2022-01-25] MEDS: Gabapentin 100 MG CAPSULE PO SCH ×3 (10:32→22:20)
[2022-01-25] MEDS: *HR* Buprenorphine HCl 8 MG TAB.SUBL SL SCH ×2 (10:38→22:18)
[2022-01-25] MEDS: Chlorhexidine Rinse 15 ML MOUTHWASH MM SCH ×2 (10:38→22:25)
[2022-01-25 21:00] LABS: ABG Base Excess 4 mEq/L (-2 to 3); ABG HCO3 31 mEq/L (21-27); ABG Oxygen Saturation 96 % (95-98); ABG PCO2 53 mmHg (35-45); ABG PH 7.38 pH Units (7.32-7.45); ABG PO2 85 mmHg (85-104); ABG TCO2 32 mEq/L (20-26)
[2022-01-25] MEDS: PARoxetine 20 MG TABLET PO SCH (22:25)
[2022-01-26] MEDS: Ipratropium/Albuterol Neb 3 ML IH SCH ×6 (00:02→20:41)
[2022-01-26] MEDS: CeFAZolin 2,000 MG/120 ML BAG IVPB SCH ×3 (01:08→15:39)
[2022-01-26 04:09] LABS: Basophils % 0.5 %; Eosinophils # 0.5 K/mcL (0.0-0.6); Eosinophils % 5.5 %; Hematocrit 35.8 % (35.3-44.9); Immature Granulocytes % 1.5 % (0-4); Lymphocytes # 2.1 K/mcL (0.6-4.6); Lymphocytes % 24.3 %; Mean Corpuscular HGB Conc 30.7 g/dL (31.6-35.5); Mean Corpuscular Hemoglobin 26.6 pg (28.0-33.3); Mean Corpuscular Volume 86.5 fL (83.0-100.0); Mean Platelet Volume 11.2 fL (9.4-12.4); Monocytes # 0.9 K/mcL (0.0-1.3); Monocytes % 9.9 %; Neutrophils # 5.1 K/mcL (1.6-8.9); Platelet Count 211 K/mcL (140-400); Red Blood Count 4.14 M/mcL (3.82-4.97); Segmented Neutrophils % 58.3 %; White Blood Count 8.8 K/mcL (4.3-11.1)
[2022-01-26 04:20] LABS: Alanine Aminotransferase 4 Units/L (7-52); Albumin 2.8 g/dL (3.5-5.7); Albumin/Globulin Ratio 0.7 (1.1-2.2); Alkaline Phosphatase 99 Units/L (34-104); Aspartate Amino Transferase 17 Units/L (13-39); BUN/Creatinine Ratio 23 (6-26); Bilirubin,Total 0.5 mg/dL (0.3-1.0); Blood Urea Nitrogen 22 mg/dL (8-23); Calcium 8.8 mg/dL (8.6-10.3); Carbon Dioxide 31 mEq/L (23-29); Chloride 105 mEq/L (98-107); Globulin 4.2 g/dL (2.4-3.5); Glucose 85 mg/dL (70-105); Magnesium 1.8 mg/dL (1.6-2.6); Osmolality,Calculated 295 (280-300); Phosphorous 3.2 mg/dL (2.7-4.5); Sodium 141 mEq/L (136-145); eGFR For African Americans > 60 (> 60); eGFR For Non-African Americans 59 (> 60)
[2022-01-26] MEDS: *HR* Heparin 5,000 UNIT/ML VIAL SQ SCH ×3 (05:26→23:10)
[2022-01-26] MEDS ORDERED: Sennosides/Docusate Sodium TABLET PO PRN (08:39)
[2022-01-26] MEDS: Torsemide 20 MG TABLET PO SCH (10:02)
[2022-01-26] MEDS: Chlorhexidine Rinse 15 ML MOUTHWASH MM SCH ×2 (10:02→23:10)
[2022-01-26] MEDS: Gabapentin 100 MG CAPSULE PO SCH ×3 (10:03→23:11)
[2022-01-26] MEDS: *HR* Buprenorphine HCl 8 MG TAB.SUBL SL SCH ×2 (10:03→23:18)
[2022-01-26] MEDS: Pantoprazole 40 MG VIAL IVP SCH (10:04)
[2022-01-26] MEDS: PARoxetine 20 MG TABLET PO SCH (23:16)
[2022-01-27] MEDS: Ipratropium/Albuterol Neb 3 ML IH SCH ×7 (00:37→23:18)
[2022-01-27] MEDS: CeFAZolin 2,000 MG/120 ML BAG IVPB SCH ×3 (02:08→15:22)
[2022-01-27] MEDS: *HR* Heparin 5,000 UNIT/ML VIAL SQ SCH ×3 (04:52→22:00)
[2022-01-27] MEDS: Torsemide 20 MG TABLET PO SCH (08:05)
[2022-01-27] MEDS: *HR* Buprenorphine HCl 8 MG TAB.SUBL SL SCH (08:05)
[2022-01-27] MEDS: Gabapentin 100 MG CAPSULE PO SCH ×3 (08:05→22:45)
[2022-01-27] MEDS: Chlorhexidine Rinse 15 ML MOUTHWASH MM SCH ×2 (08:06→22:45)
[2022-01-27] MEDS: Pantoprazole 40 MG VIAL IVP SCH (08:06)
[2022-01-27 08:21] LABS: Alanine Aminotransferase 3 Units/L (7-52); Albumin 2.7 g/dL (3.5-5.7); Albumin/Globulin Ratio 0.7 (1.1-2.2); Alkaline Phosphatase 93 Units/L (34-104); Aspartate Amino Transferase 22 Units/L (13-39); BUN/Creatinine Ratio 19 (6-26); Bilirubin,Total 0.4 mg/dL (0.3-1.0); Blood Urea Nitrogen 18 mg/dL (8-23); Calcium 8.7 mg/dL (8.6-10.3); Carbon Dioxide 30 mEq/L (23-29); Chloride 101 mEq/L (98-107); Globulin 3.9 g/dL (2.4-3.5); Glucose 100 mg/dL (70-105); Magnesium 1.5 mg/dL (1.6-2.6); Osmolality,Calculated 288 (280-300); Phosphorous 3.2 mg/dL (2.7-4.5); Potassium 3.6 mEq/L (3.5-5.1); Sodium 138 mEq/L (136-145); Total Protein 6.6 g/dL (6.4-8.9); eGFR For African Americans > 60 (> 60); eGFR For Non-African Americans 57 (> 60)
[2022-01-27] MEDS: PARoxetine 20 MG TABLET PO SCH (23:35)
[2022-01-28] MEDS: CeFAZolin 2,000 MG/120 ML BAG IVPB SCH ×3 (02:37→16:41)
[2022-01-28] MEDS: Ipratropium/Albuterol Neb 3 ML IH SCH ×6 (04:02→23:36)
[2022-01-28] MEDS: *HR* Heparin 5,000 UNIT/ML VIAL SQ SCH ×3 (05:04→21:36)
[2022-01-28 05:40] LABS: BUN/Creatinine Ratio 18 (6-26); Blood Urea Nitrogen 19 mg/dL (8-23); Calcium 8.5 mg/dL (8.6-10.3); Carbon Dioxide 30 mEq/L (23-29); Chloride 100 mEq/L (98-107); Glucose 90 mg/dL (70-105); Osmolality,Calculated 286 (280-300); Potassium 3.4 mEq/L (3.5-5.1); Sodium 137 mEq/L (136-145); eGFR For African Americans > 60 (> 60); eGFR For Non-African Americans 53 (> 60)
[2022-01-28] MEDS: Gabapentin 100 MG CAPSULE PO SCH ×3 (09:21→21:30)
[2022-01-28] MEDS: Torsemide 20 MG TABLET PO SCH (09:22)
[2022-01-28] MEDS: *HR* Buprenorphine HCl 8 MG TAB.SUBL SL SCH (09:23)
[2022-01-28] MEDS: Chlorhexidine Rinse 15 ML MOUTHWASH MM SCH ×2 (09:23→21:36)
[2022-01-28] MEDS ORDERED: Ondansetron ODT 4 MG TAB.RAPDIS SL PRN (11:27)
[2022-01-28] MEDS: PARoxetine 20 MG TABLET PO SCH (21:34)
[2022-01-28] MEDS: Acetaminophen 325 MG TABLET PO PRN (22:02)
[2022-01-29] MEDS: Ipratropium/Albuterol Neb 3 ML IH SCH ×6 (03:59→23:11)
[2022-01-29 05:17] LABS: Calcium 8.6 mg/dL (8.6-10.3); Potassium 3.4 mEq/L (3.5-5.1)
[2022-01-29] MEDS: *HR* Heparin 5,000 UNIT/ML VIAL SQ SCH ×3 (05:33→21:06)
[2022-01-29 07:39] LABS: Magnesium 1.4 mg/dL (1.6-2.6)
[2022-01-29] MEDS: *HR* Buprenorphine HCl 8 MG TAB.SUBL SL SCH (08:06)
[2022-01-29] MEDS: Torsemide 20 MG TABLET PO SCH (08:06)
[2022-01-29] MEDS: Gabapentin 100 MG CAPSULE PO SCH ×3 (08:06→21:07)
[2022-01-29] MEDS: Chlorhexidine Rinse 15 ML MOUTHWASH MM SCH ×2 (08:07→21:07)
[2022-01-29] MEDS: Budesonide/Formoterol 80/4.5 1 PUFF INH IH SCH (20:48)
[2022-01-29] MEDS: PARoxetine 20 MG TABLET PO SCH (21:10)
[2022-01-30] MEDS: Acetaminophen 325 MG TABLET PO PRN ×2 (03:31→15:29)
[2022-01-30] MEDS: Ipratropium/Albuterol Neb 3 ML IH SCH ×6 (03:48→23:36)
[2022-01-30 05:12] LABS: Calcium 8.4 mg/dL (8.6-10.3); Magnesium 1.6 mg/dL (1.6-2.6); Potassium 4.1 mEq/L (3.5-5.1)
[2022-01-30] MEDS: *HR* Heparin 5,000 UNIT/ML VIAL SQ SCH ×3 (05:17→21:15)
[2022-01-30] MEDS: Budesonide/Formoterol 80/4.5 1 PUFF INH IH SCH ×2 (07:38→20:23)
[2022-01-30] MEDS: Chlorhexidine Rinse 15 ML MOUTHWASH MM SCH (08:21)
[2022-01-30] MEDS: *HR* Buprenorphine HCl 8 MG TAB.SUBL SL SCH (08:22)
[2022-01-30] MEDS: Torsemide 20 MG TABLET PO SCH (08:22)
[2022-01-30] MEDS: Gabapentin 100 MG CAPSULE PO SCH ×3 (08:22→20:51)
[2022-01-30] MEDS ORDERED: Ergocalciferol (VIT D2) 50,000 UNIT (1.25MG) CAP PO SCH (09:00)
[2022-01-30] MEDS: PARoxetine 20 MG TABLET PO SCH (20:50)
[2022-01-31] MEDS: Ipratropium/Albuterol Neb 3 ML IH SCH ×6 (04:31→23:19)
[2022-01-31] MEDS: *HR* Heparin 5,000 UNIT/ML VIAL SQ SCH ×3 (06:08→21:55)
[2022-01-31] MEDS: Budesonide/Formoterol 80/4.5 1 PUFF INH IH SCH ×2 (07:46→19:57)
[2022-01-31] MEDS: Gabapentin 100 MG CAPSULE PO SCH ×3 (08:57→21:54)
[2022-01-31] MEDS: Torsemide 20 MG TABLET PO SCH (08:58)
[2022-01-31] MEDS: *HR* Buprenorphine HCl 8 MG TAB.SUBL SL SCH (08:58)
[2022-01-31] MEDS: Acetaminophen 325 MG TABLET PO PRN ×2 (11:30→21:52)
[2022-01-31] MEDS: PARoxetine 20 MG TABLET PO SCH (21:54)
[2022-02-01] MEDS: Ipratropium/Albuterol Neb 3 ML IH SCH ×6 (03:44→22:55)
[2022-02-01] MEDS: *HR* Heparin 5,000 UNIT/ML VIAL SQ SCH ×3 (06:29→21:24)
[2022-02-01] MEDS: Acetaminophen 325 MG TABLET PO PRN ×2 (06:33→16:29)
[2022-02-01] MEDS: Budesonide/Formoterol 80/4.5 1 PUFF INH IH SCH ×2 (08:13→19:52)
[2022-02-01] MEDS: Torsemide 20 MG TABLET PO SCH (09:15)
[2022-02-01] MEDS: Gabapentin 100 MG CAPSULE PO SCH ×3 (09:15→21:23)
[2022-02-01] MEDS: *HR* Buprenorphine HCl 8 MG TAB.SUBL SL SCH (09:15)
[2022-02-01 09:56] LABS: Basophils % 0.4 %; Eosinophils # 0.4 K/mcL (0.0-0.6); Eosinophils % 4.9 %; Hematocrit 36.8 % (35.3-44.9); Hemoglobin 11.5 g/dL (11.5-15.4); Immature Granulocytes % 0.5 % (0-4); Lymphocytes # 2.5 K/mcL (0.6-4.6); Lymphocytes % 33.5 %; Mean Corpuscular HGB Conc 31.3 g/dL (31.6-35.5); Mean Corpuscular Hemoglobin 26.7 pg (28.0-33.3); Mean Corpuscular Volume 85.4 fL (83.0-100.0); Mean Platelet Volume 11.1 fL (9.4-12.4); Monocytes # 0.7 K/mcL (0.0-1.3); Monocytes % 8.8 %; Neutrophils # 3.9 K/mcL (1.6-8.9); Platelet Count 209 K/mcL (140-400); Red Blood Count 4.31 M/mcL (3.82-4.97); Red Cell Distribution Width 17.1 % (11.5-14.5); Segmented Neutrophils % 51.9 %; White Blood Count 7.5 K/mcL (4.3-11.1)
[2022-02-01 10:16] LABS: Calcium 8.6 mg/dL (8.6-10.3); Potassium 3.6 mEq/L (3.5-5.1)
[2022-02-01] MEDS: PARoxetine 20 MG TABLET PO SCH (21:23)
[2022-02-02] MEDS: Ipratropium/Albuterol Neb 3 ML IH SCH ×6 (04:28→23:04)
[2022-02-02] MEDS: *HR* Heparin 5,000 UNIT/ML VIAL SQ SCH ×3 (05:20→21:24)
[2022-02-02] MEDS: Budesonide/Formoterol 80/4.5 1 PUFF INH IH SCH ×2 (07:40→19:39)
[2022-02-02] MEDS: Gabapentin 100 MG CAPSULE PO SCH ×3 (09:08→21:24)
[2022-02-02] MEDS: Torsemide 20 MG TABLET PO SCH (09:08)
[2022-02-02] MEDS: *HR* Buprenorphine HCl 8 MG TAB.SUBL SL SCH (09:08)
[2022-02-02] MEDS: Acetaminophen 325 MG TABLET PO PRN ×2 (14:47→21:27)
[2022-02-02] MEDS: PARoxetine 20 MG TABLET PO SCH (21:24)
[2022-02-03] MEDS: Ipratropium/Albuterol Neb 3 ML IH SCH ×6 (04:12→23:03)
[2022-02-03] MEDS: *HR* Heparin 5,000 UNIT/ML VIAL SQ SCH ×3 (05:55→19:59)
[2022-02-03] MEDS: Budesonide/Formoterol 80/4.5 1 PUFF INH IH SCH ×2 (07:39→20:00)
[2022-02-03] MEDS: Torsemide 20 MG TABLET PO SCH (09:03)
[2022-02-03] MEDS: *HR* Buprenorphine HCl 8 MG TAB.SUBL SL SCH (09:03)
[2022-02-03] MEDS: Gabapentin 100 MG CAPSULE PO SCH ×3 (09:03→19:57)
[2022-02-03] MEDS: Acetaminophen 325 MG TABLET PO PRN ×2 (09:09→20:09)
[2022-02-03] MEDS: PARoxetine 20 MG TABLET PO SCH (19:57)
[2022-02-04] MEDS: Ipratropium/Albuterol Neb 3 ML IH SCH ×6 (03:32→23:06)
[2022-02-04] MEDS: *HR* Heparin 5,000 UNIT/ML VIAL SQ SCH ×3 (05:18→22:36)
[2022-02-04] MEDS: Budesonide/Formoterol 80/4.5 1 PUFF INH IH SCH ×2 (07:39→20:29)
[2022-02-04] MEDS: *HR* Buprenorphine HCl 8 MG TAB.SUBL SL SCH (09:06)
[2022-02-04] MEDS: Gabapentin 100 MG CAPSULE PO SCH ×3 (09:06→20:54)
[2022-02-04] MEDS: Torsemide 20 MG TABLET PO SCH (09:06)
[2022-02-04] MEDS: Acetaminophen 325 MG TABLET PO PRN (16:09)
[2022-02-04] MEDS: PARoxetine 20 MG TABLET PO SCH (20:55)
[2022-02-05] MEDS: Ipratropium/Albuterol Neb 3 ML IH SCH ×4 (04:10→15:48)
[2022-02-05] MEDS: *HR* Heparin 5,000 UNIT/ML VIAL SQ SCH ×2 (05:01→14:43)
[2022-02-05] MEDS: Budesonide/Formoterol 80/4.5 1 PUFF INH IH SCH (07:52)
[2022-02-05] MEDS: Gabapentin 100 MG CAPSULE PO SCH ×3 (09:43→15:33)
[2022-02-05] MEDS: Torsemide 20 MG TABLET PO SCH (09:44)
[2022-02-05] MEDS: *HR* Buprenorphine HCl 8 MG TAB.SUBL SL SCH (09:46)
[2022-02-05] MEDS: Acetaminophen 325 MG TABLET PO PRN ×2 (09:50→15:32)
[2022-02-05 15:56] LABS: Influenza A PCR Negative (Negative); Influenza B PCR Negative (Negative); Resp. Syncytial Virus PCR Negative (Negative)
[2022-02-05 16:03] LABS: SARS-CoV-2 by PCR (In House) Negative (Negative)
[2022-02-05 16:08] VITALS: BP 115/65; PULSE 94; TEMP 97.7; O2SAT 92
== END 2022-02-05 18:30 | disposition other institution (70) | DRG 871 ==
LOC: 3NENU → SUATTDRO 12-29 19:13 → UNDODISIN 01-18 10:59 → ICNU 01-21 20:07 → 3ANU 01-24 14:14
PROVIDERS: ADMIT Student in an Organized Health Care Education/Training Program; ATTEND Family Medicine